=== PATIENT | female | born 1950 | race Caucasian/White ===

== ENCOUNTER 2017-03-13 00:23 | Day surgery (SDC) | payer OTHER, MEDICARE ==
[2017-03-13] VITALS (8 sets, daily range): BP systolic 72–109; BP diastolic 43–75
[~2017-03-13] VITALS: Ht 160 cm; Wt 67.6 kg
[~2017-03-13 00:23] MED LIST: ACE500 PO; ALBU8.5H IH; AMOX1TAB9 PO; AZIT-17 PO; CALC-635 PO; CALC300T PO; CEP500 PO; CHOL10005 PO; ESC10 PO; ESCI5TAB10 PO; ESOM20CA31 PO; ESTROGEN; FISH OIL1 CAP PO; FLU45SYR17 IM; FLU60SYR30 IM ONLY; IBUP-1618 PO; MILK150C PO; MULT-1047 PO; MULT-820 PO; OMEG-11 PO; PRED20TA6 PO; PROGESTERONE; VITA1CAP46 PO; VITA1CAP50 PO; [UNRECOGNIZED DRUG - OTHER]
[2017-03-13] MEDS ORDERED: MIDAZOLAM 2 MG/2 ML VIAL IVP PRN (07:15)
[2017-03-13] MEDS ORDERED: LIDOCAINE/SOD BICARB 8.4% SYR ID ONE (07:15)
[2017-03-13] MEDS ORDERED: NORMOSOL R SOLN(*) 1000 ML BAG 1,000 ML IV PRN (07:15)
--- NOTE | 2017-03-13 07:26 | Short(Outpt) Discharge Summary ---
Discharge Summary Reason for Hosp/Final Diag: (1) Encounter for screening colonoscopy Hospital Course & Plan: 3 mm polyp at 10 cm Departure Discharge to: Home Discharge Instructions Home Meds Active Scripts Albuterol Sulfate 90 Mcg/Act (PROAIR HFA 90 MCG/ACT) 8.5 Gm Hfa.aer.ad, 2 PUFF IH Q4-6H, #1 INHALER 2 Refills Prov:SACHIN GUTHRIE MD 03/25/16 Reported Medications Escitalopram Oxalate (LEXAPRO) 5 Mg Tablet, 5 MG PO HS 03/07/17 Vitamin B Complex (VITAMIN B COMPLEX) 1 Each Capsule, 1 CAP PO QDAY, CAPSULE 08/10/14 Cholecalciferol (Vitamin D3) (VITAMIN D3) 1,000 Unit Tablet, 1 TAB PO QDAY 08/10/14 Clive-3 Fatty Acids/Fish Oil (FISH OIL 1,000 MG CAPSULE) 1 Each Capsule, 1 CAP PO QDAY, CAPSULE 08/10/14 Multivitamin (MULTIVITAMINS) 1 Each Tablet, 1 TAB PO QDAY 08/10/14 Discontinued Reported Medications Calcium Carbonate/Vitamin D3 (CALCIUM 600 + VIT D3 TABLET) 1 Each Tablet, 1 TAB PO QDAY 08/10/14 Discontinued Scripts Escitalopram Oxalate (LEXAPRO) 10 Mg Tab, 1 TAB PO QDAY, #90 TAB 1 Refill Prov:SACHIN GUTHRIE MD 03/25/16 Azithromycin (Z-PACK) 250 Mg Tablet, 1 DOSE-PACK PO DIRECTED, #1 DOSE-PACK 2 TABLETS DAY ONE THEN 1 TABLET EVERY DAY FOR THE NEXT 4 DAYS. Prov:SACHIN GUTHRIE MD 03/25/16 Diet: Regular Activity: As Tolerated MATTHEW AMEZCUA MD Mar 13, 2017 07:26
--- NOTE | 2017-03-13 07:26 | Post Operative Progress Note ---
Post Operative Progress Note Date: Mar 13, 2017 Time: 08:12 Surgeon: da Anesthesia: dr navarrete Pre-Op Diagnosis: screening colonoscopy Post-Op Diagnosis: 3 mm polyp at 10 cm Procedure(s): colonoscopy and polypectomy MATTHEW AMEZCUA MD Mar 13, 2017 07:26
[2017-03-13] MEDS ORDERED: PROPOFOL EMUL(*) 10MG/ML 20 ML 40 ML ONE (07:29)
--- NOTE | 2017-03-13 08:58 | NACHTIGAL COLONOSCOPY ---
EVENT DATE: March 13, 2017 SURGEON: Benedicto De Jesus MD ANESTHESIOLOGIST: Shivam Qiuroga MD ANESTHESIA: Sedation PREOPERATIVE DIAGNOSIS Screening colonoscopy. POSTOPERATIVE DIAGNOSIS A 3 mm polyp at 10 cm. PROCEDURE PERFORMED Colonoscopy with polypectomy. DESCRIPTION OF PROCEDURE Patient was placed in the left lateral decubitus position, given intravenous sedation. Rectal exam was unremarkable. Flexible colonoscope was inserted, advanced to the cecum. She had an excellent bowel prep. Ileocecal valve, base of cecum were identified. Scope was slowly withdrawn. Care was taken to look behind the haustral folds. No abnormalities were noted in the cecum, right colon, transverse, descending or sigmoid colon. At 10 cm, she had a 3 mm polypoid projection. This was removed with the polypectomy snare, cautery and retrieved. Scope was reflexed in the rectum, and that appeared to be normal. ALLEGRA
== END 2017-03-13 09:27 | disposition home or self-care (01) ==
LOC: OR 00:23
PROVIDERS: ATTEND Surgery
DX: Z12.11 Encounter for screening for malignant neoplasm of colon (principal); K63.5 Polyp of colon
CPT/HCPCS: 00811; 45385; 88305; J2704

== ENCOUNTER → 2017-03-24 | Outpatient (CLI) | payer OTHER, MEDICARE ==
[2017-03-25 08:09] LABS: LDL CHOLESTEROL 102 mg/dl
== END ==
LOC: LAB 16:20
PROVIDERS: ATTEND Internal Medicine
DX: Z00.00 Encounter for general adult medical examination without abnormal findings (principal)
CPT/HCPCS: 36415; 82040; 82247; 82310; 82374; 82435; 82465; 82565; 82947; 83718; 84075; 84132; 84155; 84295; 84450; 84460; 84478; 84520